=== PATIENT | female | born 1985 | race American Indian/Alaskan Native ===

== ENCOUNTER 2019-02-02 23:20 | Emergency (ER) | payer SELFPAY ==
[2019-02-02] MEDS ORDERED: DELTASONE PO ONE (23:49)
[2019-02-02] MEDS ORDERED: BENADRYL PO ONE (23:49)
[2019-02-02] MEDS ORDERED: PEPCID PO ONE (23:50)
[2019-02-03] MEDS ORDERED: CATAPRES PO ONE (00:19)
--- NOTE | 2019-02-03 00:20 | Emergency Department Report ---
HPI - General Chief Complaint: Allergic Reaction Time Seen by Provider: 02/03/19 00:18 - HPI HPI: 33 YO WITH CO OF RASH YESTERDAY. SHE DOESNT FEEL WELL TODAY. BP INC AND SHE HAS NOT TAKEN HER MED. SHE IS HERE WITH MALE FRIEND. PT ON METOP AT HOME. OBESE. NO CP NO SOB AMBULATORY NON TOXIC ED Past Medical Hx - Past Medical History Previous Medical History?: Yes Hx Hypertension: Yes Hx Heart Attack/AMI: Yes (2018) Additional medical history: Tachycardia - Surgical History Past Surgical History?: Yes Additional Surgical History: - Family History Family history: no significant - Social History Smoking Status: Never Smoker ED Review of Systems ROS: Stated complaint: SORE THROAT DIZZINESS Other details as noted in HPI Comment: All other systems reviewed and negative Physical Exam - Physical Exam Vital Signs: Vital Signs 02/02/19 23:24 Temperature 98.8 F Pulse Rate 100 H Respiratory 18 Rate Blood Pressure 154/100 O2 Sat by Pulse 98 Oximetry Physical Exam: ALERT AND ORIENTED NO FOCAL DEF S1S2 LUNGS CTA ABD SNT NO EDEMA NO JVD ED Course Vital Signs 02/02/19 23:24 Temperature 98.8 F Pulse Rate 100 H Respiratory 18 Rate Blood Pressure 154/100 O2 Sat by Pulse 98 Oximetry ED Medical Decision Making - Radiology Data Radiology results: report reviewed, image reviewed - Medical Decision Making MEDICATED PER TRIAGE FOR ALLERGY NO S/S TODAY THIS WAS ALL YESTERDAY SHE IS IN ER W ANOTHER PT AND WANTED CHECKED FOR HER ISSUES YESTERDAY BP NOTED TO BE INC SHE HAS NOT TAKEN HER METOP TODAY NO CP NO SOB NON TOXIC EDUCATED ON BP CONTROL CLONIDINE PO IN ER DC HOME WITH PCP FOLLOW UP - Differential Diagnosis HTN; MED NON ADH; CONCERED FOR ALLERGIC REACTION Critical care attestation.: If time is entered above; I have spent that time in minutes in the direct care of this critically ill patient, excluding procedure time. ED Disposition Clinical Impression: HTN (hypertension), Medically noncompliant Disposition: DC-01 TO HOME OR SELFCARE Is pt being admited?: No Does the pt Need Aspirin: No Condition: Stable Instructions: Hypertension (ED), DASH Eating Plan (ED), Low Sodium Diet (ED) Additional Instructions: LOW FAT DIET GET WEIGHT DOWN HYDRATE WELL WITH WATER AVOID ALCOHOL AND DRUGS MEDS PER YOUR DOCTORS ORDERS FOLLOW UP WITH PCP IF YOUR RASH RETURNS TAKE BENADRYL OVER THE COUNTER Referrals: AUGUSTIN HUGHES MD [Staff Physician] - 3-5 Days Time of Disposition: 00:28
[2019-02-03 01:23] VITALS: BP 141/97
== END 2019-02-03 01:23 | disposition home or self-care (01) ==
LOC: ED 23:20
DX: I10 Essential (primary) hypertension (principal)
CPT/HCPCS: 93005; 93010; 99282; J7512

== ENCOUNTER 2019-03-06 02:18 | Emergency (ER) | payer SELFPAY ==
[2019-03-06 02:41] VITALS: BP 165/102
--- NOTE | 2019-03-06 03:16 | Emergency Department Report ---
ED ENT HPI - General Chief complaint: Dental/Oral Stated complaint: TOOTH PAIN Time Seen by Provider: 03/06/19 02:56 Source: patient Mode of arrival: Ambulatory Limitations: No Limitations - History of Present Illness Initial comments: This is a 33-year-old female nontoxic, well nourished in appearance, no acute signs of distress presents to the ED with c/o of lower lower toothache 1 month. Patient denies following up with a dentist. Patient stated that pain radiates from his job to his left side of head. Patient otherwise denies any head trauma . Patient describes toothache as aching level of 8 out of 10. Patient denies any facial swelling. Patient denies any numbness, tingling, fever, chills, headache, stiff neck, abdominal pain, chest pain, shortness of breath. Patient denies any drug allergies or significant past medical history. MD complaint: tooth pain -: month(s) (1) Location: tooth # 1 - pain here Severity: mild Severity scale (0 -10): 8 Quality: aching Consistency: constant Improves with: none Worsens with: none Context- Dental: history of dental caries, poor dental care Associated Symptoms: gum swelling, toothache. denies: fever, cough, pain with swallowing, sore throat, tinnitus, hearing loss, discharge from ear, rhinorrhea - Related Data Previous Rx's Medication Instructions Recorded Last Taken Type Acetaminophen/Codeine [Tylenol 1 tab PO Q6H PRN #10 tab 02/12/19 Unknown Rx /Codeine # 3 tab] Ibuprofen [Motrin 800 MG tab] 800 mg PO Q8HR PRN #20 tablet 02/12/19 Unknown Rx Penicillin Vk [Veetids TAB] 500 mg PO QID 7 Days #56 tablet 02/12/19 Unknown Rx Acetaminophen/Codeine [Tylenol 1 tab PO Q6H PRN #12 tab 03/06/19 Unknown Rx /Codeine # 3 tab] Chlorhexidine Mouthwash [Peridex] 15 ml MM BID #1 bottle 03/06/19 Unknown Rx Clindamycin [Clindamycin CAP] 300 mg PO Q8H #21 cap 03/06/19 Unknown Rx Allergies Allergy/AdvReac Type Severity Reaction Status Date / Time No Known Allergies Allergy Verified 08/27/13 13:55 ED Dental HPI - General Chief complaint: Dental/Oral Stated complaint: TOOTH PAIN Time Seen by Provider: 03/06/19 02:56 Source: patient Mode of arrival: Ambulatory Limitations: No Limitations - Related Data Previous Rx's Medication Instructions Recorded Last Taken Type Acetaminophen/Codeine [Tylenol 1 tab PO Q6H PRN #10 tab 02/12/19 Unknown Rx /Codeine # 3 tab] Ibuprofen [Motrin 800 MG tab] 800 mg PO Q8HR PRN #20 tablet 02/12/19 Unknown Rx Penicillin Vk [Veetids TAB] 500 mg PO QID 7 Days #56 tablet 02/12/19 Unknown Rx Acetaminophen/Codeine [Tylenol 1 tab PO Q6H PRN #12 tab 03/06/19 Unknown Rx /Codeine # 3 tab] Chlorhexidine Mouthwash [Peridex] 15 ml MM BID #1 bottle 03/06/19 Unknown Rx Clindamycin [Clindamycin CAP] 300 mg PO Q8H #21 cap 03/06/19 Unknown Rx Allergies Allergy/AdvReac Type Severity Reaction Status Date / Time No Known Allergies Allergy Verified 08/27/13 13:55 ED Review of Systems ROS: Stated complaint: TOOTH PAIN Other details as noted in HPI Constitutional: denies: chills, fever Eyes: denies: eye pain, eye discharge, vision change ENT: dental pain. denies: ear pain, throat pain Respiratory: denies: cough, shortness of breath, wheezing Cardiovascular: denies: chest pain, palpitations Endocrine: no symptoms reported Gastrointestinal: denies: abdominal pain, nausea, diarrhea Genitourinary: denies: urgency, dysuria, discharge Musculoskeletal: denies: back pain, joint swelling, arthralgia Skin: denies: rash, lesions Neurological: denies: headache, weakness, paresthesias Psychiatric: denies: anxiety, depression Hematological/Lymphatic: denies: easy bleeding, easy bruising ED Past Medical Hx - Past Medical History Previous Medical History?: Yes Hx Hypertension: Yes Hx Heart Attack/AMI: Yes (2018) Additional medical history: Tachycardia, Endometriosis - Surgical History Past Surgical History?: Yes Additional Surgical History: - Social History Smoking Status: Current Every Day Smoker Substance Use Type: None - Medications Home Medications: Home Medications Medication Instructions Recorded Confirmed Last Taken Type Acetaminophen/Codeine [Tylenol 1 tab PO Q6H PRN #10 tab 02/12/19 Unknown Rx /Codeine # 3 tab] Ibuprofen [Motrin 800 MG tab] 800 mg PO Q8HR PRN #20 tablet 02/12/19 Unknown Rx Penicillin Vk [Veetids TAB] 500 mg PO QID 7 Days #56 tablet 02/12/19 Unknown Rx Acetaminophen/Codeine [Tylenol 1 tab PO Q6H PRN #12 tab 03/06/19 Unknown Rx /Codeine # 3 tab] Chlorhexidine Mouthwash [Peridex] 15 ml MM BID #1 bottle 03/06/19 Unknown Rx Clindamycin [Clindamycin CAP] 300 mg PO Q8H #21 cap 03/06/19 Unknown Rx ED Physical Exam - General Limitations: No Limitations General appearance: alert, in no apparent distress - Head Head exam: Present: atraumatic, normocephalic - Expanded ENT Exam Expanded Ear exam: Present: normal external inspection Mouth exam: Present: normal external inspection, tongue normal. Absent: drooling, trismus, muffled voice Teeth exam: Present: dental caries, fractured tooth #, dental tenderness #, gingival enlargement, other (no facial swelling) Throat exam: Positive: normal inspection, other (uvual midline). Negative: tonsillar erythema, tonsillomegaly, tonsillar exudate, R peritonsillar mass, L peritonsillar mass - Neck Neck exam: Present: normal inspection, full ROM. Absent: tenderness, meningismus, lymphadenopathy - Extremities Exam Extremities exam: Present: normal inspection, full ROM - Back Exam Back exam: Present: normal inspection, full ROM - Neurological Exam Neurological exam: Present: alert, oriented X3, normal gait - Psychiatric Psychiatric exam: Present: normal affect, normal mood - Skin Skin exam: Present: warm, dry, intact, normal color. Absent: rash ED Course Vital Signs 03/06/19 02:21 Temperature 98.2 F Pulse Rate 83 Respiratory 14 Rate Blood Pressure 165/102 O2 Sat by Pulse 99 Oximetry - Reevaluation(s) Reevaluation #1: 03/06/19 03:14 Patient is speaking in full sentences with no signs of distress noted. ED Medical Decision Making - Medical Decision Making This is a 33-year-old female that presents with gingivitis and dental caries. Patient is stable and was examined by me. There is no swelling to the right lower mandible. Patient is discharged with clindamycin. Patient is discharged with Tylenol with codeine, Peridex and Clinda. Patient was instructed not to operate any machinery when taking Tylenol with Codeine due to drowsiness. At time of discharge, the patient does not seem toxic or ill in appearance. No acute signs of distress noted. Patient agrees to discharge treatment plan of care. No further questions noted by the patient. Critical care attestation.: If time is entered above; I have spent that time in minutes in the direct care o f this critically ill patient, excluding procedure time. ED Disposition Clinical Impression: Dental caries, Gingivitis Disposition: TO HOME OR SELFCARE Is pt being admited?: No Does the pt Need Aspirin: No Condition: Stable Instructions: Dental Caries (ED), Gingivitis (ED), Acetaminophen/Codeine (By mouth) Additional Instructions: Follow-up with a dentist doctor in 3-5 days or if symptoms worsen and continue return to emergency room as soon as possible. Do not operate any machinery while taking Tylenol with codeine as this may cause drowsiness. Prescriptions: Clindamycin [Clindamycin CAP] 300 mg PO Q8H #21 cap Chlorhexidine Mouthwash [Peridex] 15 ml MM BID #1 bottle Acetaminophen/Codeine [Tylenol /Codeine # 3 tab] 1 tab PO Q6H PRN #12 tab PRN Reason: Pain , Severe (7-10) Referrals: PRIMARY MD STEFF [Primary Care Provider] - 3-5 Days KAREN JIMENEZ MD [Staff Physician] - 3-5 Days [facility] [Outside] - 3-5 Days [facility] [Outside] - 3-5 Days Forms: Work/School Release Form(ED)
== END 2019-03-06 03:20 | disposition home or self-care (01) ==
LOC: ED 02:18
DX: K02.9 Dental caries, unspecified (principal); K05.00 Acute gingivitis, plaque induced; I11.0 Hypertensive heart disease with heart failure; F17.200 Nicotine dependence, unspecified, uncomplicated; Z79.899 Other long term (current) drug therapy
CPT/HCPCS: 99282

== ENCOUNTER 2019-04-14 18:12 | Emergency (ER) | payer SELFPAY ==
--- NOTE | 2019-04-14 18:39 | Event Note ---
ED Screening Note Date of service: 04/14/19 Time: 18:39 ED Screening Note: 33 y o presents with mid chest pain x today This initial assessment/diagnostic orders/clinical plan/treatment(s) is/are subject to change based on patients health status, clinical progression and re- assessment by fellow clinical providers in the ED. Further treatment and workup at subsequent clinical providers discretion. Patient/guardian urged not to elope from the ED as their condition may be serious if not clinically assessed and managed. Initial orders include: labs ekg cxr
[2019-04-14 19:10] LABS: Hematocrit 38.7 % (30.3-42.9); Hemoglobin 12.5 gm/dl (10.1-14.3); Mean Corpuscular HGB Conc 32 % (30-34); Mean Corpuscular Volume 79 fl (79-97); Platelet Count 247 K/mm3 (140-440); Red Cell Distribution Width 15.8 % (13.2-15.2)
[2019-04-14 19:30] LABS: BUN/Creatinine Ratio 17; Blood Urea Nitrogen 12 mg/dL (7-17); Calcium 8.9 mg/dL (8.4-10.2); Hemolysis Index 44
--- NOTE | 2019-04-14 19:38 | XRay Report ---
CHEST 1 VIEW 191 INDICATION / CLINICAL INFORMATION: MAIN: Chest Pain PT SD CP TDY AND HX OF HBP...JTS. COMPARISON: None available. FINDINGS: SUPPORT DEVICES: None HEART / MEDIASTINUM: No significant abnormality. LUNGS / PLEURA: No significant pulmonary or pleural abnormality. No pneumothorax. ADDITIONAL FINDINGS: No significant additional findings. IMPRESSION: No significant acute abnormality Signer Name: Deyvi Artis MD Signed: 04/14/2019 7:34 PM Workstation Name: [id number]
[2019-04-14 19:59] LABS: Basophils % (Manual) 0 % (0.0-1.8); Total Cells Counted 100
[2019-04-14 20:00] LABS: Anisocytosis 1+
[2019-04-14] MEDS ORDERED: LIDOCAINE VISCOUS 2% 15 ML ORAL LIQD PO ONE (21:04)
[2019-04-14] MEDS ORDERED: ALUM-MAG HYDROXIDE-SIMETHICONE 200-200-20MG/5ML ORAL LIQD 30 ML PO ONE (21:04)
[2019-04-14] MEDS ORDERED: FAMOTIDINE 20 MG TAB PO ONE (21:05)
[2019-04-14 22:05] VITALS: BP 142/88
--- NOTE | 2019-04-14 22:52 | Emergency Department Report ---
ED Chest Pain HPI - General Chief Complaint: Chest Pain Stated Complaint: CHEST PAIN Time Seen by Provider: 04/14/19 18:30 Source: patient Mode of arrival: Wheelchair Limitations: No Limitations - History of Present Illness Initial Comments: Patient is a 33-year-old -[place]onegas[place] female with a history of hypertension who presents to the ED with complaint of acute onset persistent epigastric pain that radiates with a substernal chest area with a burning sensation and back pain for the last 3 hours. Patient states that she was seated at work resting comfortably after eating dinner when she started feeling epigastric pain with a burning sensation radiating to her chest, and thereafter developed shortness of breath. Patient states that the pain in the chest and epigastric areas reviewed by burping. Patient denies dizziness, fever, chills, cough, sore throat, nausea, vomiting, headache, diarrhea or diaphoresis. MD Complaint: chest pain, other (Epigastric pain) -: Sudden, hour(s) (3), This evening Onset: during rest, after eating Pain Location: substernal, epigastric Pain Radiation: none Severity: moderate Severity scale (0 -10): 5 Quality: aching, sharp, other (Burning) Consistency: constant Improves With: nothing Worsens With: eating re: denies: nausea, vomting, diaphoresis, dyspnea, sense of impending doom, other Other Symptoms: acid taste in mouth, burping. denies: cough, fever, syncope, leg swelling, palpitations Treatments Prior to Arrival: aspirin Aspirin use within the Past 7 Days: (0) No - Related Data On Oral Contraceptives: No Previous Rx's Medication Instructions Recorded Last Taken Type Acetaminophen/Codeine [Tylenol 1 tab PO Q6H PRN #10 tab 02/12/19 Unknown Rx /Codeine # 3 tab] Ibuprofen [Motrin 800 MG tab] 800 mg PO Q8HR PRN #20 tablet 02/12/19 Unknown Rx Penicillin Vk [Veetids TAB] 500 mg PO QID 7 Days #56 tablet 02/12/19 Unknown Rx Acetaminophen/Codeine [Tylenol 1 tab PO Q6H PRN #12 tab 03/06/19 Unknown Rx /Codeine # 3 tab] Chlorhexidine Mouthwash [Peridex] 15 ml MM BID #1 bottle 03/06/19 Unknown Rx Clindamycin [Clindamycin CAP] 300 mg PO Q8H #21 cap 03/06/19 Unknown Rx raNITIdine HCl [Zantac] 150 mg PO Q12H #30 tablet 04/14/19 Unknown Rx Allergies Allergy/AdvReac Type Severity Reaction Status Date / Time No Known Allergies Allergy Verified 08/27/13 13:55 Heart Score - HEART Score History: Slightly suspicious EKG: Normal Age: < 45 Risk factors: 1-2 risk factors Troponin: < normal limit HEART Score: 1 - Critical Actions Critical Actions: 0-3 pts:0.9-1.7%risk of adverse cardiac event.Candidate for discharge ED Review of Systems ROS: Stated complaint: CHEST PAIN Other details as noted in HPI Constitutional: denies: chills, fever Eyes: denies: eye pain, eye discharge, vision change ENT: denies: ear pain, throat pain Respiratory: denies: cough, shortness of breath, wheezing Cardiovascular: chest pain. denies: palpitations, edema, syncope, paroxysmal nocturnal dyspnea Endocrine: no symptoms reported Gastrointestinal: abdominal pain. denies: nausea, diarrhea Genitourinary: denies: urgency, dysuria, discharge Musculoskeletal: denies: back pain, joint swelling, arthralgia Skin: denies: rash, lesions Neurological: denies: headache, weakness, paresthesias Psychiatric: denies: anxiety, depression Hematological/Lymphatic: denies: easy bleeding, easy bruising ED Past Medical Hx - Past Medical History Previous Medical History?: Yes Hx Hypertension: Yes Hx Heart Attack/AMI: Yes (2018) Additional medical history: Tachycardia, Endometriosis - Surgical History Past Surgical History?: Yes Additional Surgical History: - Social History Smoking Status: Never Smoker Substance Use Type: None - Medications Home Medications: Home Medications Medication Instructions Recorded Confirmed Last Taken Type Acetaminophen/Codeine [Tylenol 1 tab PO Q6H PRN #10 tab 02/12/19 Unknown Rx /Codeine # 3 tab] Ibuprofen [Motrin 800 MG tab] 800 mg PO Q8HR PRN #20 tablet 02/12/19 Unknown Rx Penicillin Vk [Veetids TAB] 500 mg PO QID 7 Days #56 tablet 02/12/19 Unknown Rx Acetaminophen/Codeine [Tylenol 1 tab PO Q6H PRN #12 tab 03/06/19 Unknown Rx /Codeine # 3 tab] Chlorhexidine Mouthwash [Peridex] 15 ml MM BID #1 bottle 03/06/19 Unknown Rx Clindamycin [Clindamycin CAP] 300 mg PO Q8H #21 cap 03/06/19 Unknown Rx raNITIdine HCl [Zantac] 150 mg PO Q12H #30 tablet 04/14/19 Unknown Rx ED Physical Exam - General Limitations: No Limitations General appearance: alert, in no apparent distress - Head Head exam: Present: atraumatic, normocephalic, normal inspection - Eye Eye exam: Present: normal appearance, PERRL, EOMI. Absent: scleral icterus Pupils: Present: normal accommodation - ENT ENT exam: Present: normal exam, normal orophraynx, mucous membranes moist, TM's normal bilaterally, normal external ear exam - Neck Neck exam: Present: normal inspection, full ROM. Absent: tenderness, lymphadenopathy, thyromegaly - Respiratory Respiratory exam: Present: normal lung sounds bilaterally, chest wall tenderness (palpable reproducible chest wall tenderness). Absent: respiratory distress, wheezes, rales, rhonchi, stridor, accessory muscle use, prolonged expiratory - Cardiovascular Cardiovascular Exam: Present: regular rate, normal rhythm, normal heart sounds. Absent: systolic murmur, diastolic murmur, rubs, gallop - GI/Abdominal GI/Abdominal exam: Present: soft, tenderness (palpable epigastric tenderness), normal bowel sounds. Absent: guarding, rebound, hyperactive bowel sounds, hypoactive bowel sounds, organomegaly - Rectal Rectal exam: Present: deferred - Extremities Exam Extremities exam: Present: normal inspection, full ROM, normal capillary refill - Back Exam Back exam: Present: normal inspection, full ROM. Absent: tenderness, CVA tenderness (R), CVA tenderness (L), muscle spasm, vertebral tenderness - Neurological Exam Neurological exam: Present: alert, oriented X3, CN II-XII intact, normal gait, reflexes normal - Psychiatric Psychiatric exam: Present: normal affect, normal mood. Absent: anxious, flat affect, homicidal ideation - Skin Skin exam: Present: warm, dry, intact, normal color. Absent: rash ED Course Vital Signs 04/14/19 04/14/19 18:28 22:03 Temperature 98.3 F Pulse Rate 97 H 88 Respiratory 15 14 Rate Blood Pressure 160/101 142/88 [Left] O2 Sat by Pulse 100 98 Oximetry - Reevaluation(s) Reevaluation #1: 04/14/19 22:55 This is a 33-year-old -[place] female with a history of hypertension who presented to the ED with epigastric pain that radiates to the substernal chest wall for 3 hours constantly after eating. In the ED, patient is alert and oriented 3 and is not in distress. Vital signs are stable. EKG shows normal sinus rhythm with ventricular rate of 89 bpm, and no ST or T-wave abnormalities. Chest x-ray shows no acute cardiopulmonary abnormalities or pneumonitis. Lab test results were reviewed and are all nonactionable including initial and 3 hour troponin and repeat. Patient was treated for pain with Pepcid and GI cocktail, patient having taken aspirin prior to arrival in the ED. On reevaluation, patient's pain resolved with the GI cocktail and Pepcid. Given the fact of the patient's pain began after eating a sandwich and continued to persist with a burning sensation relieved by burping, patient's symptoms is likely due to GERD complications. The patient does not take anything for GERD to home. MALLORIE score - Mallorie Score Age > 65: (0) No Aspirin use within the Past 7 Days: (0) No 3 or more CAD Risk Factors: (0) No 2 or more Angina events in past 24 hrs: (0) No Known CAD with more than 50% Stenosis: (0) No Elevated Cardiac Markers: (0) No ST Deviation Greater than 0.5mm: (0) No MALLORIE Score: 0 ED Medical Decision Making - Lab Data Result diagrams: 04/14/19 18:46 04/14/19 18:46 - EKG Data EKG shows normal: sinus rhythm Rate: normal - EKG Data When compared to previous EKG there are: no significant change Interpretation: normal EKG 04/14/19 23:00 Normal sinus rhythm, ventricular rate of 89 bpm, no ST or T-wave abnormalities. - Radiology Data Radiology results: report reviewed, image reviewed Chest x-ray shows no acute cardiopulmonary abnormalities. - Medical Decision Making This is a 33-year-old -[place] female with a history of hypertension who presented to the ED with epigastric pain that radiates to the substernal chest wall for 3 hours constantly after eating. In the ED, patient is alert and oriented 3 and is not in distress. Vital signs are stable. EKG shows normal sinus rhythm with ventricular rate of 89 bpm, and no ST or T-wave abnormalities. Chest x-ray shows no acute cardiopulmonary abnormalities or pneumonitis. Lab test results were reviewed and are all nonactionable including initial and 3 hour troponin and repeat. Patient was treated for pain with Pepcid and GI cocktail, patient having taken aspirin prior to arrival in the ED. On reevaluation, patient's pain resolved with the GI cocktail and Pepcid. Given the fact of the patient's pain began after eating a sandwich and continued to persist with a burning sensation relieved by burping, patient's symptoms is likely due to GERD complications. The patient has a heart score of 1 and the MALLORIE value of 0, and is PERC Negative. The patient does not take anything for GERD to home. Therefore the patient symptoms are likely due to GERD, patient's amount ACS. Patient was discharged home on medications for GERD and advised to follow-up with her primary care physician in 5-7 days for reevaluation or return to the ED immediately if symptoms get worse. - Differential Diagnosis ACS; GERD; Gatritis; Pneumonia; Costocondritis; Anxiety Critical care attestation.: If time is entered above; I have spent that time in minutes in the direct care of this critically ill patient, excluding procedure time. ED Disposition Clinical Impression: Acute epigastric pain, Nonspecific chest pain GERD (gastroesophageal reflux disease) Qualifiers: Esophagitis presence: without esophagitis Qualified Code(s): K21.9 - Gastro- esophageal reflux disease without esophagitis Disposition: - TO HOME OR SELFCARE Is pt being admited?: No Does the pt Need Aspirin: No Condition: Stable Instructions: Chest Pain (ED), Gastroesophageal Reflux Disease (ED) Additional Instructions: Take medication with food, drink plenty of fluids and follow-up with your primary care physician in 5-7 days for reevaluation. Return to the ED immediately if symptoms get worse. Prescriptions: raNITIdine HCl [Zantac] 150 mg PO Q12H #30 tablet Referrals: [facility] [Outside] - 3-5 Days Time of Disposition: 23:04 Print Language: BAHAMIAN
== END 2019-04-14 23:16 | disposition home or self-care (01) ==
LOC: ED 18:12
DX: K21.9 Gastro-esophageal reflux disease without esophagitis (principal); I10 Essential (primary) hypertension; Z79.1 Long term (current) use of non-steroidal anti-inflammatories (NSAID); Z79.899 Other long term (current) drug therapy
CPT/HCPCS: 36415; 71045; 80048; 84484; 85007; 85025; 93005; 93010; 99284